=== PATIENT | female | born 1985 | race Two or more races ===

== ENCOUNTER → 2025-02-17 | Outpatient (CLI) | payer OTHER, SELFPAY ==
--- NOTE | 2025-02-17 13:32 | XR_ITS ---
Examination: Shoulder,left, 3 views Technique: Shoulder AP internal rotation, AP external rotation, Y view shoulder, 3 views Exam date and time :April 19, 2025, 1353 hrs. Indications: Patient fell today with injury to the shoulder, shoulder pain. Findings: No shoulder fracture or dislocation. No opaque foreign body Impression: No shoulder fracture or dislocation.
--- NOTE | 2025-02-17 13:32 | XR_ITS ---
Examination: Left elbow 3 views Technique: Elbow AP, oblique, lateral 3 views Exam date and time: February 17, 2025 1359 hrs. Indications: Patient fell today with injury to the elbow, elbow pain. Findings: No fracture or dislocation. No foreign body Impression: No fracture or dislocation..
--- NOTE | 2025-02-17 13:32 | XR_ITS ---
Examination: Fingers, left hand fifth digit 3 views Technique: AP, oblique, lateral views left hand fifth digit 3 views. Exam date and time: February 17, 2025, 1353 hrs. Indications: Injury to the hand today with fifth digit pain. Findings: No fracture or dislocation No foreign body Impression: No fracture or dislocation
--- NOTE | 2025-02-17 13:32 | XR_ITS ---
Examination: Wrist, left 3 views Technique: Wrist AP, oblique, lateral 3 views Date and time of exam: February 17, 2025 at 1353 hrs. Indications: Patient fell today with injury to the wrist, wrist pain. Findings: No acute fracture. No dislocation No foreign body Impression: No acute fracture
== END | disposition home or self-care (01) ==
PROVIDERS: Referring Provider Nurse Practitioner Family; Visit Provider Nurse Practitioner Family
DX: S43.402A Unspecified sprain of left shoulder joint, initial encounter (principal); S53.402A Unspecified sprain of left elbow, initial encounter; S63.502A Unspecified sprain of left wrist, initial encounter; S69.92XA Unspecified injury of left wrist, hand and finger(s), initial encounter; W19.XXXA Unspecified fall, initial encounter
CPT/HCPCS: 73030; 73080; 73110; 73140